=== PATIENT | female | born 1980 | race Caucasian/White ===

== ENCOUNTER 2019-08-20 10:05 | Emergency (ER) | payer OTHER ==
[~2019-08-20] VITALS: Ht 157.5 cm; Wt 74.8 kg
[~2019-08-20 10:05] MED LIST: AMBIEN; AMNESTEEM PO; BCP PO; BUSPIRONE; CARAFATE 1 GM TA1 G1 PO; COMPAZINE10 MG; DESYREL50 MG PO; EFFEXOR XR75 MG PO; FLEXERIL; IBUPROFEN 800800 M1 PO; MULTIVITAMINS; OMEPRAZOLE; PERCOCET 5-3251 EACH PO; PREDNISONE 10 M10 M1; PRENATAL; PROZAC 10 MG CA10 M1 PO; TRAMADOL 50 MG50 MG PO; VICODIN ES TAB1 EACH PO; XANAX; XANAX 0.5 MG0.5 M1 PO; ZOFRAN4 MG PO
[2019-08-20 10:33] LABS: URINE BLOOD NEGATIVE (Negative); URINE CLARITY CLEAR; URINE COLOR YELLOW; URINE GLUCOSE-RANDOM TRACE (Negative); URINE KETONES TRACE (Negative); URINE LEUKOCYTES-REFLEX TRACE (Negative); URINE PROTEIN 1+ (Negative)
[2019-08-20 10:35] LABS: ICTOTEST (BILI CONFIRMATORY) Negative (Negative); URINE BILIRUBIN 1+ (Negative); URINE NITRITE-REFLEX POSITIVE (Negative)
[2019-08-20 10:40] LABS: CASTS None Seen /LPF (None Seen); CRYSTALS None Seen /LPF (None Seen); MUCUS None Seen strn/LPF (None Seen); SQUAMOUS 4-10 Moderate /LPF (0-3); URINE RBC 0-2 Rare /HPF (0-2); URINE WBC-REFLEX 0-5 Rare /HPF (0-5)
[2019-08-20] MEDS ORDERED: FLAGYL500 M1 PO (10:48)
[2019-08-20] MEDS ORDERED: PHENAZOPYRIDIN200 M2 PO (10:49)
[2019-08-20] MEDS ORDERED: KEFLEX500 M1 PO (11:31)
[2019-08-20 11:42] VITALS: BP 128/88
== END 2019-08-20 11:45 | disposition home or self-care (01) ==
LOC: M.ERS 10:05
PROVIDERS: Emergency Medicine Emergency Medical Services
DX: N39.0 Urinary tract infection, site not specified (principal); Z98.51 Tubal ligation status; Z90.710 Acquired absence of both cervix and uterus; Z88.8 Allergy status to other drugs, medicaments and biological substances

== ENCOUNTER 2020-02-07 21:23 | Emergency (ER) | payer OTHER ==
[~2020-02-07] VITALS: Ht 157.5 cm; Wt 72.6 kg
[~2020-02-07 21:23] MED LIST changes: +FLAGYL500 M1 PO; +KEFLEX500 M1 PO; +PHENAZOPYRIDIN200 M2 PO
[2020-02-07] MEDS ORDERED: XANAX 0.25 MG0.25 MG PO (21:39)
[2020-02-07] MEDS ORDERED: ADIPEX-P37.5 MG PO (21:39)
[2020-02-07] MEDS ORDERED: ACYCLOVIR 400400 MG PO (21:40)
[2020-02-07] MEDS ORDERED: PEPCID20 MG PO (21:58)
[2020-02-07] MEDS ORDERED: ZYRTEC 10 MG TA10 MG PO (21:58)
[2020-02-07] MEDS ORDERED: PREDNISONE 20 M20 M1 PO (21:58)
[2020-02-07 22:46] VITALS: BP 142/91
== END 2020-02-07 22:47 | disposition home or self-care (01) ==
LOC: M.ERS 21:23
DX: T78.40XA Allergy, unspecified, initial encounter (principal); Z88.8 Allergy status to other drugs, medicaments and biological substances; Z98.51 Tubal ligation status; Z90.710 Acquired absence of both cervix and uterus; X58.XXXA Exposure to other specified factors, initial encounter

== ENCOUNTER 2020-10-31 11:15 | Emergency (ER) | payer OTHER ==
[~2020-10-31] VITALS: Ht 157.5 cm; Wt 72.6 kg
[~2020-10-31 11:15] MED LIST changes: +ACYCLOVIR 400400 MG PO; +ADIPEX-P37.5 MG PO; +PEPCID20 MG PO; +PREDNISONE 20 M20 M1 PO; +XANAX 0.25 MG0.25 MG PO; +ZYRTEC 10 MG TA10 MG PO
[2020-10-31 12:02] VITALS: BP 158/108
== END 2020-10-31 12:01 | disposition home or self-care (01) ==
LOC: M.ERS 11:15
DX: J02.9 Acute pharyngitis, unspecified (principal); Z20.822 Contact with and (suspected) exposure to COVID-19; Z98.51 Tubal ligation status; Z90.710 Acquired absence of both cervix and uterus; Z79.899 Other long term (current) drug therapy; Z88.8 Allergy status to other drugs, medicaments and biological substances